=== PATIENT | male | born 1990 | race Two or more races ===

== ENCOUNTER 2024-11-02 20:54 | Emergency (ER) | payer OTHER ==
[~2024-11-02] VITALS: Ht 170.2 cm; Wt 76.8 kg
[2024-11-02] MEDS: FLUORESCEIN SOD OPTH TEST STRIP LEFTEYE ONE (22:45)
[2024-11-02] MEDS: TETRACAINE HCL 0.5% OPTH(EYE) SOLN 4ML LEFTEYE ONE (22:45)
--- NOTE | 2024-11-02 23:20 | ED.PDOC ---
Eye-HPI HPI Comments 34-year-old male presents to ER with complaints of left eye pain x1 day. 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 States he was wearing protective eyewear and rates his current pain a 8/10 to left eye without radiation. Patient presents to ER ambulatory on arrival, steady gait, in no distress. Denies use of contacts, vision changes, headache or any further symptoms/complaints Chief Complaint: Eye Problem Time Seen by MD: 21:07 Primary Care Provider: UNKNOWN Reviewed Notes: Nurses Notes, Medications, Allergies Allergies: Coded Allergies: NO KNOWN ALLERGIES (Unverified , 11/02/24) Home Meds Active Scripts Erythromycin (Erythromycin) 5 Mg/Gm Oin, 1 MG OP 6XD for 7 Days, #1 OIN 0 Refills Prov:AMARA SOLO 11/03/24 Information Source: Patient Mode of Arrival: EMS Past Medical History PAST MEDICAL HISTORY: Denies Surgical History: Denies all surgeries Family History Family History: Unknown Social History Smoker: Non-Smoker Alcohol: Denies ETOH Use Drugs: Denies Drug Use Lives In: Home Constitutional: denies: chills, diaphoresis, fatigue, fever, malaise, sweats, weakness, others EENTM: reports: others (As stated in HPI) Respiratory: denies: cough, hemoptysis, orthopnea, SOB at rest, shortness of breath, SOB with excertion, stridor, wheezing, others Cardiovascular: denies: chest pain, dizzy spells, diaphoresis, Dyspnea on exertion, edema, irregular heart beat, left arm pain, lightheadedness, palpitations, PND, syncope, others Gastrointestinal: denies: abdomen distended, abdominal pain, blood streaked bowels, constipated, diarrhea, dysphagia, difficulty swallowing, hematemesis, melena, nausea, poor appetite, poor fluid intake, rectal bleeding, rectal pain, vomiting, others Genitourinary: denies: burning, dysuria, flank pain, frequency, hematuria, incontinence, penile discharge, penile sore, pain, testicle pain, testicle swelling, urgency, others Neurological: denies: dizziness, fainting, headache, left sided numbness, left sided weakness, numbness, paresthesia, pre-existing deficit, right sided numbness, right sided weakness, seizure, speech problems, tingling, tremors, weakness, others Musculoskeletal: denies: back pain, gout, joint pain, joint swelling, muscle pain, muscle stiffness, neck pain, others Integumetry: denies: bruises, change in color, change in hair/nails, dryness, laceration, lesions, lumps, rash, wounds, others Allergic/Immunocompromised: denies: Difficulty Healing, Frequent Infections, Hives, Itching, others Hematologic/Lymphatic: denies: anemia, blood clots, easy bleeding, easy bruising, swollen glands, others Endocrine: denies: excessive hunger, excessive sweating, excessive thirst, excessive urination, flushing, intolerance to cold, intolerance to heat, unexplained weight gain, unexplained weight loss, others Psychiatric: denies: anxiety, bipolar disorder, depression, hopeless, panic disorder, schizophrenia, sleepless, suicidal, others Physical Exam General Appearance: No Apparent Distress HEENT: PERRL/EOMI, Pharynx Normal, TMs Normal, Other (Wood's lamp examination left eye-subconjunctival injection and corneal abrasion noted, no drainage/foreign body noted. Mild swelling noted to left upper eyelid, no further skin changes noted) Neck: Full Range of Motion, Non-Tender, Normal Respiratory: Chest Non-Tender, Lungs Clear, No Accessory Muscle Use, No Respiratory Distress, Normal Breath Sounds Cardiovascular: No Murmur, No Gallop, Regular Rate/Rhythm Breast Exam: Deferred Gastrointestinal: NOT DONE Genitalia: Deferred Pelvic: Deferred Rectal: Deferred Extremities: Normal capillary refill, Normal range of motion Neurologic: Alert, shactor II-XII nml as Tested, No Motor Deficits, Normal Affect, Normal Mood, No Sensory Deficits Cerebellar Function: Normal Reflexes: Normal Skin: Dry, Normal Color, Warm Lymphatic: No Adenopathy Was a procedure done? Was a procedure done?: No Sedation Sedation?: No EENT DIFF Eye: Foreign Body-Corneal, Globe Rupture, Orbital Cellulits, Periorbital Cellulits X-Ray, Labs, Meds, VS Vital Signs Date Time Temp Pulse Resp B/P (MAP) Pulse Ox O2 Delivery O2 Flow Rate FiO2 11/03/24 00:02 98.3 56 20 122/77 (92) 99 98.3 11/02/24 20:55 99.0 98 20 123/84 (97) 99 99.0 Fluorescein stain ophthalmic ordered Tetracaine ophthalmic ordered Erythromycin ointment ordered, patient educated on proper use/dosage Advised to follow up with PCP and Ophthalmology in 1-2 days Patient verbalized understanding and agreeable with current plan of care Advised to return to ER immediately if symptoms worsen Time of 1ST Reevaluation: 23:20 Reevaluation 1ST: N/A Patient Education/Counseling: Diagnosis, Treatment, Prognosis, Need For Follow Up Family Education/Counseling: No Family Present SEPSIS Sepsis Screen Date sepsis recognized/suspect: Nov 02, 2024 Time Sepsis recognized/suspect: 2054 Recent Procedure: No On Antibiotic Therapy: No Respiratory Rate >20: No Heart Rate >90: No Temp<36 C (96.8 F) or >38.3 C: No SBP <90 or MAP <65 mmHG: No New Acute Mental Status Change: No Is the patient on CPAP, BIPAP,: No Physician Orders Erythromy Opth Oint 5mg/Gm 1gm (11/03/24 00:15) Vital Signs Date Time Temp Pulse Resp B/P (MAP) Pulse Ox O2 Delivery O2 Flow Rate FiO2 11/03/24 00:02 98.3 56 20 122/77 (92) 99 98.3 11/02/24 20:55 99.0 98 20 123/84 (97) 99 99.0 Departure 1 Departure Time of Disposition: 00:04 Impression: Primary Impression: Corneal abrasion, left Qualified Codes: S05.02XA - Injury of conjunctiva and corneal abrasion without foreign body, left eye, initial encounter Disposition: HOME / SELF CARE / HOMELESS Condition: Stable e-Prescriptions Erythromycin (Erythromycin) 5 Mg/Gm Oin 1 MG OP 6XD for 7 Days, #1 OIN 0 Refills Prov: AMARA SOLO 11/03/24 Discharged With: Friend Critical Care Note Critical Care Time?: No Stability Stability form required: No Heart Score Heart Score: Heart Score Response (Comments) Value History N/A 0 EKG N/A 0 Age N/A 0 Risk Factors N/A 0 Troponin N/A 0 Total 0 AMARA SOLO Nov 02, 2024 23:20
[2024-11-03 00:02] VITALS: BP 122/77; PULSE 56; TEMP 98.3
[2024-11-03] MEDS ORDERED: ERY05OO OP (00:06)
[2024-11-03] MEDS: ERYTHROMY OPTH OINT 5mg/gm 1gm or 3.5gm tube OP ONE (00:15)
[2024-11-03 01:44] VITALS: RESP 18; O2SAT 98
== END 2024-11-03 01:50 | disposition home or self-care (01) ==
LOC: ER 20:54
DX: S05.02XA Injury of conjunctiva and corneal abrasion without foreign body, left eye, initial encounter (principal); Z79.899 Other long term (current) drug therapy; X58.XXXA Exposure to other specified factors, initial encounter; Y93.89 Activity, other specified; Y92.89 Other specified places as the place of occurrence of the external cause; Y99.8 Other external cause status